=== PATIENT | female | born 1970 | race Caucasian/White ===

== ENCOUNTER 2018-02-10 08:00 | Inpatient (IN) | payer MEDICARE, MEDICAID ==
[~2018-02-10 08:00] MED LIST: Dexamethasone 4 MG/ML SDV ONE; Glycopyrrolate 0.2 MG/ML 5 ML MDV ONE; Lactated Ringers 1,000 ML ONE; Neostigmine Methylsulfate 1 MG/ML 5 ML Syringe ONE; Ondansetron 4 MG/2 ML SDV ONE; Propofol 200 MG/20 ML SDV ONE; Rocuronium 50 MG/5 ML Vial ONE; Sodium Chloride 0.9% 1,000 ML IV SCH; Succinylcholine 200 MG/10 ML MDV ONE; fentaNYL 250 MCG/5 ML SDV ONE
[2018-02-10] MEDS ORDERED: Dextrose 5%-Lactated Ringers 1,000 ML IV SCH (08:30)
[2018-02-10] MEDS ORDERED: Albuterol/Ipratropium 3.0-0.5 MG/3 ML Neb Soln NEB ONE (08:30)
[2018-02-10] MEDS ORDERED: Acetaminophen 500 MG Tab PO ONE (08:30)
[2018-02-10] MEDS ORDERED: cefOXitin 2 GM in Sodium Chloride 0.9% 50 ML IV ONE (08:30)
[2018-02-10] MEDS ORDERED: Scopolamine 1.5 MG Transdermal Patch TOP SCH (08:30)
[2018-02-10] MEDS ORDERED: Celecoxib 200 MG Cap PO ONE (08:30)
[2018-02-10] MEDS ORDERED: Gabapentin 300 MG Cap PO ONE (08:30)
[2018-02-10] MEDS ORDERED: Lidocaine 0.4%/D5W 2 GM/500 ML BAG IV SCH (10:00)
[2018-02-10] MEDS ORDERED: Ketamine 500 MG/5 ML MDV IV SCH (10:00)
[2018-02-10] MEDS ORDERED: Ropivacaine 52 ML, Dexamethasone 8 MG, EPINEPHrine 0.4 MG, Sodium Chloride 0.9% 25.6 ML NERVRT SCH ×4 (10:00)
[2018-02-10] MEDS ORDERED: Lidocaine 2% 100 MG/5 ML Syringe IVPUSH ONE (10:00)
[2018-02-10] MEDS ORDERED: Dexamethasone 4 MG/ML SDV ONE (11:34)
[2018-02-10] MEDS ORDERED: Rocuronium 50 MG/5 ML Vial ONE (12:01)
[2018-02-10] MEDS: cefOXitin 2 GM Vial ONE ×2 (12:11→12:43)
[2018-02-10] MEDS ORDERED: fentaNYL 250 MCG/5 ML SDV ONE (12:24)
[2018-02-10] MEDS ORDERED: ePHEDrine 50 MG/ML SDV ONE (12:32)
[2018-02-10] MEDS ORDERED: Ondansetron 4 MG/2 ML SDV IVPUSH PRN (15:00)
[2018-02-10] MEDS ORDERED: Labetalol 20 MG/4 ML Syringe IVPUSH PRN (15:00)
[2018-02-10] MEDS ORDERED: diphenhydrAMINE 50 MG/ML SDV IVPUSH PRN (15:00)
[2018-02-10] MEDS ORDERED: Albuterol/Ipratropium 3.0-0.5 MG/3 ML Neb Soln INH PRN (15:00)
[2018-02-10] MEDS ORDERED: Insulin Aspart 100 Units/ML 3 ML Pen SUBCUT PRN (15:00)
[2018-02-10] MEDS ORDERED: 50% Dextrose in Water 50 ML Syringe IVPUSH PRN (15:00)
[2018-02-10] MEDS ORDERED: Metoclopramide 10 MG/2 ML SDV IVPUSH PRN (15:00)
[2018-02-10] MEDS ORDERED: Glucagon,Human Recombinant 1 MG Vial IM PRN (15:00)
[2018-02-10] MEDS ORDERED: hydrOXYzine HCl 100 MG/2 ML SDV IM PRN (15:00)
[2018-02-10] MEDS ORDERED: Albuterol/Ipratropium 3.0-0.5 MG/3 ML Neb Soln ONE (15:01)
[2018-02-10] MEDS: Albuterol/Ipratropium 3.0-0.5 MG/3 ML Neb Soln INH SCH ×2 (15:05→21:33)
[2018-02-10] MEDS ORDERED: Pantoprazole 40 MG Vial IVPUSH SCH (16:00)
[2018-02-10] MEDS ORDERED: MVI, Adult with Vitamin K 10 ML, Thiamine 200 MG, Chromium/Copper/Mang/Selen/Zn 1 ML in... IV SCH ×4 (16:00)
[2018-02-10] MEDS: Gabapentin 250 MG/5 ML Solution ML 470 ML Bottle PO SCH ×2 (16:18→21:32)
[2018-02-10] MEDS: cefOXitin 2 GM in Sodium Chloride 0.9% 50 ML IV SCH ×2 (16:18→22:35)
[2018-02-10] MEDS: Acetaminophen Soln 650 MG/20.3 ML UD Cup PO SCH ×2 (16:19→21:32)
[2018-02-10] MEDS: Heparin Sodium 5,000 Units/ML Vial SUBCUT SCH (17:17)
[2018-02-10] MEDS: Dextrose 5%-Lactated Ringers 1,000 ML IV SCH (22:35)
[2018-02-11] MEDS ORDERED: Iohexol 647 MG/ML 50 ML SDV PO STA (00:25)
[2018-02-11] MEDS: Acetaminophen Soln 650 MG/20.3 ML UD Cup PO SCH ×4 (04:11→21:18)
[2018-02-11] MEDS: cefOXitin 2 GM in Sodium Chloride 0.9% 50 ML IV SCH ×2 (04:13→11:24)
[2018-02-11] MEDS: Dextrose 5%-Lactated Ringers 1,000 ML IV SCH (05:03)
[2018-02-11] MEDS: Heparin Sodium 5,000 Units/ML Vial SUBCUT SCH ×2 (06:21→17:48)
[2018-02-11] MEDS: Albuterol/Ipratropium 3.0-0.5 MG/3 ML Neb Soln INH SCH ×4 (07:09→21:20)
[2018-02-11] MEDS ORDERED: Ondansetron 4 MG Tab.DIS PO PRN (07:16)
[2018-02-11] MEDS ORDERED: EPINEPHrine 1 MG/ML SDV IM PRN (07:17)
[2018-02-11] MEDS ORDERED: Dextrose 5%-Lactated Ringers 1,000 ML IV SCH (07:30)
[2018-02-11] MEDS: Celecoxib 200 MG Cap PO SCH (07:41)
--- NOTE | 2018-02-11 08:53 | CR ---
UGI wo KUB HISTORY: eval R -Y GBP FINDINGS: After administration of oral contrast, upright views were obtained. Post operative changes gastric bypass. Surgical drains in place. No evidence for leak. Contrast passes freely into proximal small bowel loops. There is mild dilatation. IMPRESSION: No evidence for leak or obstruction.
[2018-02-11] MEDS: DULoxetine 30 MG Cap PO SCH (09:06)
[2018-02-11] MEDS: Amphetamine/Dextroamphetamine Salts 10 MG Cap.ER PO SCH (09:06)
[2018-02-11] MEDS: Fluticasone Propionate Nasal Spray 16 GM Bottle NASBOTH SCH ×2 (09:06→21:18)
[2018-02-11] MEDS: Hydrochlorothiazide 12.5 MG Cap PO SCH (09:07)
[2018-02-11] MEDS: Propranolol 80 MG Cap.ER PO SCH (09:07)
[2018-02-11] MEDS: Fluconazole 150 MG Tab PO SCH (09:07)
[2018-02-11] MEDS: Potassium Chloride 20 MEQ Tab.ER PO SCH (09:08)
[2018-02-11] MEDS: SCOPOLAMINE PATCH CHECK TOP SCH (09:08)
[2018-02-11] MEDS: Gabapentin 250 MG/5 ML Solution ML 470 ML Bottle PO SCH ×3 (09:08→21:18)
--- NOTE | 2018-02-11 10:29 | PN ---
DATE OF SERVICE: 02/11/2018 SUBJECTIVE: Lilliam is postop day #1. Her upper GI this morning was normal. Oral intake 660. Urine output 2200. BALTAZAR put out 40 mL of a light pink serosanguineous drainage. Pain has been controlled. She is up ambulating. Reports a little bit of dizziness, unsteadiness when she first gets up. REVIEW OF SYSTEMS: Remainder of review of systems negative for any pertinent positives and negatives. OBJECTIVE: GENERAL: Lilliam is a pleasant 48-year-old female. VITAL SIGNS: TPR is 97.8, 70, 16. Blood pressure 125/41. Blood sugars; 168, 183. HEENT: Negative. NECK: Supple. HEART: Regular rate and rhythm. LUNGS: Clear. ABDOMEN: Dressings dry and intact. Abdominal binder is on. BALTAZAR drain is intact. EXTREMITIES: Without peripheral edema and SCDs are on. ASSESSMENT: Laparoscopic Prakash-en-Y gastric bypass surgery, liver biopsy, repair of diaphragmatic hernia, and resection and closure of gastric ulcer, for morbid obesity, hepatomegaly, and contaminated perforation of gastric ulcer and diaphragmatic hernia. Surgeon; Ki Lemos M.D. Date of surgery 02/10/2018. PLAN: Decrease IV to 100 mL per hour. Dressing off, may shower. Ambulate 6 times daily. Communication order; 3 med cups every hour , record at bedside. Step 2 gastric bypass diet without cereal. Restart home medications; Cymbalta 60 mg p.o. daily open capsule, EpiPen use as directed, Diflucan 150 mg p.o. daily, Flonase 1 spray in each nostril twice a day, hydrochlorothiazide 12.5 mg p.o. daily, discontinue metformin, propranolol (Inderal LA) 160 mg every 24 hours open capsule, and potassium chloride 20 mEq p.o. daily. Good pulmonary toilet. We will evaluate p.r.n. or in the a.m. Amanda Ramsey PA-C /[id number]
[2018-02-11] MEDS ORDERED: Benzocaine/Cetylpyridinium/Menthol Lozenge MUCMEM PRN (11:28)
[2018-02-11] MEDS ORDERED: Metoclopramide 10 MG Tab PO PRN (12:04)
[2018-02-11] MEDS ORDERED: MVI, Adult with Vitamin K 10 ML, Thiamine 200 MG, Chromium/Copper/Mang/Selen/Zn 1 ML in... IV SCH ×4 (16:00)
[2018-02-11] MEDS ORDERED: Pantoprazole 40 MG Delayed-Release Granules 1 Packet PO SCH (16:30)
[2018-02-11] MEDS ORDERED: diphenhydrAMINE 25 MG Cap PO PRN (19:32)
[2018-02-12] MEDS: Acetaminophen Soln 650 MG/20.3 ML UD Cup PO SCH ×2 (03:29→09:32)
[2018-02-12] MEDS: Heparin Sodium 5,000 Units/ML Vial SUBCUT SCH (06:04)
[2018-02-12] MEDS: Albuterol/Ipratropium 3.0-0.5 MG/3 ML Neb Soln INH SCH (07:24)
[2018-02-12] MEDS ORDERED: Cyanocobalamin (Vitamin B12) 1,000 MCG/ML SDV IM ONE (09:00)
[2018-02-12] MEDS: Fluconazole 150 MG Tab PO SCH (09:20)
[2018-02-12] MEDS: Fluticasone Propionate Nasal Spray 16 GM Bottle NASBOTH SCH (09:20)
[2018-02-12] MEDS: DULoxetine 30 MG Cap PO SCH (09:20)
[2018-02-12] MEDS: Celecoxib 200 MG Cap PO SCH (09:20)
[2018-02-12] MEDS: Propranolol 80 MG Cap.ER PO SCH (09:21)
[2018-02-12] MEDS: Potassium Chloride 20 MEQ Tab.ER PO SCH (09:21)
[2018-02-12] MEDS: SCOPOLAMINE PATCH CHECK TOP SCH (09:21)
[2018-02-12] MEDS: Hydrochlorothiazide 12.5 MG Cap PO SCH (09:21)
[2018-02-12] MEDS: Gabapentin 250 MG/5 ML Solution ML 470 ML Bottle PO SCH (09:25)
[2018-02-12] MEDS: Amphetamine/Dextroamphetamine Salts 10 MG Cap.ER PO SCH (09:25)
--- NOTE | 2018-02-14 08:50 | DISCH ---
FINAL DIAGNOSES: 1. Morbid obesity. 2. Marked hepatomegaly. 3. Contained perforation of gastric cardia. 4. Diaphragmatic hernia. 5. Type 2 diabetes mellitus. 6. Intermittent asthma. 7. Depressive disorder. 8. Anxiety. PROCEDURE PERFORMED: On 02/10/2018, diagnostic laparoscopy with: A. Laparoscopic Prakash-en-Y gastric bypass with long limb gastroenterostomy. B. Laron-Cut needle liver biopsy. C. Repair of diaphragmatic hernia and deep resection closure of perforated gastric ulcer. SUMMARY: This is a 48-year-old status post removal of laparoscopic adjustable gastric band in [place] in October of this year. She presented for consideration of conversion to Prakash-en-Y gastric bypass status. This was accomplished on the date of admission. At the time of the dissection of the liver off the area where the band had been present, the patient was noted to have a contained perforation of the gastric cardia. This was repaired and the edges were resected. The patient otherwise had an unremarkable Prakash-en-Y gastric bypass formed. She did have marked hepatomegaly and a liver biopsy obtained and diaphragmatic hernia which was concurrently repaired. Postoperatively, no major problems were noted. She tolerated a step- 2 diet. She will be discharged home on a step-2 diet. The patient has been off metformin postoperatively and is running blood sugars in the low 100s, so she will be going home without the metformin. Otherwise, we will have her hold the hydrochlorathiazide for now. Her Propranolol LA was switched to short-acting form b.i.d. for 2 weeks and she will be instructed to hold the ibuprofen. She will be continuing the KCl, Flonase, epinephrine as needed, Adderall XR, Cymbalta, and albuterol. She will be given a prescription for Diflucan 200 mg daily x3 days which she can fill if needed, and otherwise will be taking Tylenol 1 g q.6 hours p.r.n. and Celebrex 200 mg daily x2 weeks. She is instructed to stay on a step-2 diet until the first appointment, which will be done with [facility] on 02/21/2018.
--- NOTE | 2018-02-17 08:21 | OR ---
DATE OF PROCEDURE: 02/10/2018 PREOPERATIVE DIAGNOSIS: Morbid obesity. POSTOPERATIVE DIAGNOSES: 1. Morbid obesity. 2. Marked hepatomegaly. 3. Contained perforation of gastric cardia. 4. Paraesophageal diaphragmatic hernia. PROCEDURE PERFORMED: 1. Laparoscopic Prakash-en-Y gastric bypass with long limb gastroenterostomy (22650). 2. Laron-Cut needle liver biopsy (67804). 3. Repair of paraesophageal diaphragmatic hernia (22259). 4. Closure of perforated gastric ulcer (32895). ANESTHESIA: General. CHAINSTITCH SEAT JOINER: Amanda Ramsey PA-C. INDICATIONS FOR PROCEDURE: This is a 48-year-old status post removal of laparoscopic adjustable gastric band for ongoing intolerance and complications. This was done in October of this year at [facility] in [place]. They declined to convert it to a gastric bypass status, despite ongoing problems with morbid obesity and associated comorbidities. The plan is to proceed with a laparoscopic Prakash-en-Y gastric bypass, and possible need for open approach was reviewed with the patient and family. Otherwise, potential risks including bleeding, infection, leaks from various GI tract closures, problems with bowel obstruction over time, as well as possibility of cardiopulmonary, septic, or hemorrhagic complications leading to were discussed, and the patient wishes to proceed. PROCEDURE DETAILS: The patient was taken to the operating room and placed in a supine position. After general endotracheal anesthesia was induced, she was converted to a lithotomy position and the abdomen prepped and draped. At 15 cm inferior and 5 cm left of xiphoid process, a transverse incision was made and the peritoneal cavity entered under direct vision with an Optiview trocar and inflated to 15 mmHg pressure with CO2. Laparoscope was reinserted. No underlying trocar insertion site injuries were seen. Following this, bilateral transversus abdominis plane blocks were then placed with direct visualization of the needle-tip from within to confirm the correct location. Following this, five additional trocars were placed across the upper mid abdomen, and general exploration was undertaken. The patient was noted to have marked hepatomegaly with the liver being roughly 2 to 3 times normal in terms of volume and grossly fatty infiltrated. Laron-Cut needle biopsy obtained from left lobe of liver, minimal bleeding from the biopsy site was controlled with electrocautery. At this point, dissection between the adhesed portion of the upper stomach where the band had been previously located commenced. As one dissected the liver off this area, it became evident that there was a contained perforation of the stomach, and that would likely be the point where the band had been removed. This was dissected free further up, and the stomach somewhat above the previous imprint of the band was then encircled, and the proximal pouch was then constructed with three firings of the LANA black loads. The perforation, which was just below this point, was then closed with resection of the ridge of stomach along the edges of the site of perforation, and that specimen was sent as a separate specimen. At that point, with the pouch being satisfactorily constructed, attention was taken to the small bowel. The small bowel was identified at the ligament of Treitz and dissected 150 cm distal to that point, was divided with a LANA stapler. Small bowel was then traced out additional 200 cm, where the [id number] enteroenterostomy was accomplished with internal firing of the Endo- LANA 60 mm stapler. The common opening was then closed transversely with the same stapler, angles anastomosed, and the mesenteric defect approximated with some 0 Ethibond stitch, along with 4 mL of fibrin sealant. The divided end of the Prakash limb was then from the mesentery for a few centimeters, which allowed an antecolic position of the Prakash limb up to the level of the gastric pouch without tension. The anvil of a 25-mm EEA stapler was then passed after being attached to a [place] sump type tube. The latter being pulled down and taken out through a small opening in the stomach allowing the anvil likewise to be passed into the gastric pouch. Somewhat anterior to the gastric pouch, the patient was noted to have paraesophageal diaphragmatic hernia, which contained a tongue of omentum prolapsing into it. This was reduced and closed with 0 Ethibond sutures, reinforced PTFE pledgets. The divided end of the Prakash limb was then opened, and the main body of the EEA stapler was passed several centimeters into the lumen of the small bowel, brought up the anvil and united with it, thus creating the gastrojejunostomy. Upon removal of the stapler, double donuts of mucosa were noted within it. The small bowel was closed off with a vascular staple line. Gastrojejunostomy was reinforced with some 3-0 Vicryl seromuscular stitch, along with fibrin sealant. Leak test was accomplished with injection of 120 mL of air in the gastric pouch, while submerged with cefoxitin-containing saline solution. No leaks were identified. Two Yusef-Black drains were then placed adjacent to gastrojejunostomy and taken out subcostal trocar sites. With no further problems noted, the trocars were removed and peritoneal cavity deflated. The incision was closed with 4-0 Vicryl skin stitch and drains affixed with some 4-0 Vicryl stitch as well. The patient was taken to the recovery room in satisfactory condition. There were no evident complications. Physician billing assistant Amanda Ramsey played an essential role in assisting in this case, helping to position the patient, retract structures as needed, as well as suturing and cutting sutures when indicated. Her presence improved patient safety and decreased operative time. Ki Lemos MD /[id number]
== END 2018-02-12 09:59 | disposition home health service (06) | DRG 621 ==
LOC: JP.SDSSCHI 08:00 → JP.SDS 08:01 → EDSTATUS 10:15 → JP.2SS 13:30
PROVIDERS: ADMIT Surgery; ATTEND Surgery
PROC: 0D164ZA Bypass Stomach to Jejunum, Percutaneous Endoscopic Approach (ICD-10-PCS; principal; 2018-02-10)
PROC: 0FB24ZX Excision of Left Lobe Liver, Percutaneous Endoscopic Approach, Diagnostic (ICD-10-PCS; 2018-02-10)
PROC: 0BQT4ZZ Repair Diaphragm, Percutaneous Endoscopic Approach (ICD-10-PCS; 2018-02-10)
PROC: 0DB84ZZ Excision of Small Intestine, Percutaneous Endoscopic Approach (ICD-10-PCS; 2018-02-10)
PROC: 3E0T3BZ Introduction of Anesthetic Agent into Peripheral Nerves and Plexi, Percutaneous Approach (ICD-10-PCS; 2018-02-10)
PROC: 0DB64ZX Excision of Stomach, Percutaneous Endoscopic Approach, Diagnostic (ICD-10-PCS; 2018-02-10)
DX: E66.01 Morbid (severe) obesity due to excess calories (principal); K31.89 Other diseases of stomach and duodenum; K76.0 Fatty (change of) liver, not elsewhere classified; R16.0 Hepatomegaly, not elsewhere classified; K44.9 Diaphragmatic hernia without obstruction or gangrene; Z68.37 Body mass index [BMI] 37.0-37.9, adult; I10 Essential (primary) hypertension; J45.20 Mild intermittent asthma, uncomplicated; F32.9 Major depressive disorder, single episode, unspecified; F41.9 Anxiety disorder, unspecified; Z87.891 Personal history of nicotine dependence; Z87.820 Personal history of traumatic brain injury; M17.11 Unilateral primary osteoarthritis, right knee; F07.0 Personality change due to known physiological condition; E11.9 Type 2 diabetes mellitus without complications
CPT/HCPCS: 36415; 74240; 74240-26; 80053; 82962; 83735; 84100; 85027; 86850; 86900; 86901; 88307; 88313; 94640; 94762; A9270-GY; C9113; J0171; J0330; J0694; J1100; J1200; J1644; J2001; J2405; J2704; J2710; J2795; J3010; J3411; J3420; J3490; J7042; J7050; J7120; J7620-GY; Q9967